=== PATIENT | female | born 1975 | race Caucasian/White ===

== ENCOUNTER 2017-12-25 10:19 | Emergency (ER) | payer SELFPAY ==
[2017-12-25] MEDS ORDERED: HALOPERIDOL LACTATE INJ 5 MG/1 ML VIAL IM ONE (10:42)
[2017-12-25] MEDS ORDERED: IBUPROFEN 600 MG TABLET PO ONE (10:42)
--- NOTE | 2017-12-25 10:45 | ER Document Report ---
ED General <MASON FOY - Last Filed: 12/25/17 13:33> <YAJAIRA SMITH - Last Filed: 12/25/17 15:00> - General Chief Complaint: Headache Stated Complaint: HEADACHE Time Seen by Provider: 12/25/17 10:32 Notes: The patient is a 42-year-old female, past medical history anxiety, headaches, asthma, presents by EMS after she had her usual right posterior headache that started while she was at [facility]. She took 650 mg Motrin with some relief of her symptoms. Patient is very tangential and possibly delusional. "My great grandfather, who is Jalen Gonzalez, told me I am not allowed to have surgery. 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 [email or web address] and that is all I eat every day. (YAJAIRA SMITH) - Related Data Allergies/Adverse Reactions: Penicillins Allergy (Verified 12/25/17 10:45) Past Medical History - General Information source: Patient - Social History Smoking Status: Unknown if Ever Smoked Family History: Reviewed & Not Pertinent <YAJAIRA SMITH - Last Filed: 12/25/17 15:00> Review of Systems <MASON FOY - Last Filed: 12/25/17 13:33> <YAJAIRA SMITH - Last Filed: 12/25/17 15:00> - Review of Systems Notes: REVIEW OF SYSTEMS: CONSTITUTIONAL: -fevers, -chills EENT: -eye pain, -difficulty swallowing, -nasal congestion CARDIOVASCULAR: -chest pain, -syncope. RESPIRATORY: -cough, -SOB GASTROINTESTINAL: -abdominal pain, -nausea, -vomiting, -diarrhea GENITOURINARY: -dysuria, -hematuria MUSCULOSKELETAL: -back pain, -neck pain SKIN: -rash or skin lesions. HEMATOLOGIC: -easy bruising or bleeding. LYMPHATIC: -swollen, enlarged glands. NEUROLOGICAL: -altered mental status or loss of consciousness, +headache, - neurologic symptoms PSYCHIATRIC: -anxiety, -depression. ALL OTHER SYSTEMS REVIEWED AND NEGATIVE. (YAJAIRA SMITH) Physical Exam <MASON FOY - Last Filed: 12/25/17 13:33> <YAJAIRA SMITH - Last Filed: 12/25/17 15:00> - Vital signs Vitals: Temp Pulse Resp BP Pulse Ox 98.5 F 89 16 103/85 97 12/25/17 11:02 12/25/17 11:02 12/25/17 11:02 12/25/17 11:02 12/25/17 11:02 - Notes Notes: PHYSICAL EXAMINATION: GENERAL: Well-appearing, well-nourished and in no acute distress. HEAD: Atraumatic, normocephalic. EYES: Pupils equal round and reactive to light, extraocular movements intact, sclera anicteric, conjunctiva are normal. ENT: nares patent, oropharynx clear without exudates. Moist mucous membranes. NECK: Normal range of motion, supple without lymphadenopathy LUNGS: Breath sounds clear to auscultation bilaterally and equal. No wheezes rales or rhonchi. HEART: Regular rate and rhythm without murmurs ABDOMEN: Soft, nontender, normoactive bowel sounds. No guarding, no rebound. No masses appreciated. EXTREMITIES: Normal range of motion, no pitting or edema. No cyanosis. NEUROLOGICAL: Cranial nerves grossly intact. Normal speech, normal gait. Normal sensory and motor exams. PSYCH: Delusional thoughts, tangential. Denies SI or HI. SKIN: Warm, Dry, normal turgor, no rashes or lesions noted. (YAJAIRA SMITH) Course - Laboratory Result Diagrams: 12/25/17 11:10 12/25/17 11:11 <MASON FOY - Last Filed: 12/25/17 13:33> - Laboratory Result Diagrams: 12/25/17 11:10 12/25/17 11:11 - Diagnostic Test Radiology reviewed: Image reviewed, Reports reviewed - EKG Interpretation by Vt EKG shows normal: Sinus rhythm, [place], Intervals, QRS Complexes, ST-T Waves Rate: Normal <YAJAIRA SMITH - Last Filed: 12/25/17 15:00> - Re-evaluation Re-evalutation: Patient's headache is benign in nature and similar to prior headaches. CT head was obtained due to her bizarre affect and no prior visits, but this did not show any acute findings. Blood work and urine is also unremarkable. Mental health evaluate patient and recommends outpatient follow-up. There is no criteria for IVC at this time she denies wanting to hurt anyone or herself. Will discharge patient with outpatient psychiatric follow-up. (YAJAIRA SMITH) - Vital Signs Vital signs: Temp Pulse Resp BP Pulse Ox 98.5 F 89 16 103/85 97 12/25/17 11:02 12/25/17 11:02 12/25/17 11:02 12/25/17 11:02 12/25/17 11:02 - Laboratory Laboratory results interpreted by me: 12/25/17 12/25/17 12/25/17 10:55 11:10 11:11 Seg Neuts % (Manual) 80 H Band Neutrophils % 1 L Monocytes % (Manual) 2 L Glucose 142 H Urine Blood SMALL H Ur Leukocyte Esterase TRACE H Salicylates < 1.0 L Acetaminophen < 10 L - Diagnostic Test Radiology results interpreted by me: CT Head: NAD (YAJAIRA SMITH) Discharge <MASON FOY - Last Filed: 12/25/17 13:33> <YAJAIRA SMITH - Last Filed: 12/25/17 15:00> - Discharge Clinical Impression: Schizophrenia Qualifiers: Schizophrenia type: paranoid schizophrenia Qualified Code(s): F20.0 - Paranoid schizophrenia Condition: Stable Disposition: HOME, SELF-CARE Additional Instructions: You are recommended to follow-up with [facility] in 3-5 days for your continued mental health treatment. Schizophrenia Schizophrenia is a chemical disorder that affects how the brain functions. The exact cause is unknown, but it tends to run in families. It is NOT caused by emotional trauma. Schizophrenia causes disordered thinking, including unusual beliefs and inability to "process" happenings around the patient. Patients with schizophrenia benefit greatly from medicine. These medicines are called antipsychotics. Never stop the medicine without the doctor 's approval. Counselling may help the patient deal with his disease. Schizophrenics require a very ordered environment. Stresses and sudden changes may bring out symptoms. Drugs and alcohol abuse may become problems. Contact the counsellor or crisis line if there are thoughts of suicide or of harming others, or if you become aware of unusual thoughts or beliefs AT ANY TIME, IF YOUR SYMPTOMS CHANGE SIGNIFICANTLY OR WORSEN OR YOU DEVELOP NEW SYMPTOMS, RETURN TO THE EMERGENCY DEPARTMENT IMMEDIATELY FOR RE-EVALUATION. Referrals: [facility] [Provider Group] - Follow up in 3-5 days
--- NOTE | 2017-12-25 11:10 | RADIOLOGY REPORT (SQ) ---
EXAM DESCRIPTION: CT HEAD WITHOUT COMPLETED DATE/TIME: 12/25/2017 11:02 am REASON FOR STUDY: headache, delusional COMPARISON: None. TECHNIQUE: Axial images acquired through the brain without intravenous contrast. Images reviewed wi th bone, brain and subdural windows. Images stored on PACS. All CT scanners at this facility use dose modulation, iterative reconstruction, and/or weight based d osing when appropriate to reduce radiation dose to as low as reasonably achievable (ALARA). [facility]: Dose Right [facility]: CareDose [facility]: Dose Right [facility]: Teradose 4D [facility]: Humedics RADIATION DOSE: CT Rad equipment meets quality standard of care and radiation dose reduction techniq ues were employed. CTDIvol: 64.6 - 67.0 mGy. DLP: 2479 mGy-cm. mGy. LIMITATIONS: None. FINDINGS: VENTRICLES: Normal size and contour. CEREBRUM: No masses. No hemorrhage. No midline shift. No evidence for acute infarction. Normal gra y/white matter differentiation. No areas of low density in the white matter. CEREBELLUM: No masses. No hemorrhage. No alteration of density. No evidence for acute infarction. EXTRAAXIAL SPACES: No fluid collections. No masses. ORBITS AND GLOBE: No intra- or extraconal masses. Normal contour of globe without masses. CALVARIUM: No fracture. PARANASAL SINUSES: No fluid or mucosal thickening. Chronic appearing deformity of the maxillary sinu ses with soft tissue. SOFT TISSUES: No mass or hematoma. OTHER: No other significant finding. IMPRESSION: NORMAL BRAIN CT WITHOUT CONTRAST. EVIDENCE OF ACUTE STROKE: NO. COMMENT: Quality ID # [id number]: Final reports with documentation of one or more dose reduction techniques (e.g., Automated exposure control, adjustment of the mA and/or kV according to patient size, use of iterative reconstruction technique) TECHNICAL DOCUMENTATION: JOB ID: [id number] [employer]- All Rights Reserved
[2017-12-25 11:33] LABS: HEMATOCRIT 36.9 % (36.0-47.0); HEMOGLOBIN 12.4 g/dL (12.0-15.5); MEAN CORPUSCULAR HEMOGLOBIN 28.2 pg (27.0-33.4); MEAN CORPUSCULAR HGB CONC 33.6 g/dL (32.0-36.0); MEAN CORPUSCULAR VOLUME 84 fl (80-97); PLATELET COUNT 337 10^3/uL (150-450); RED CELL DISTRIBUTION WIDTH 13.6 % (11.5-14.0); WHITE BLOOD COUNT 9.7 10^3/uL (4.0-10.5)
[2017-12-25 11:41] LABS: APPEARANCE,URINE SLIGHTLY-CLOUDY; BILIRUBIN,URINE NEGATIVE (NEGATIVE); COLOR,URINE YELLOW; GLUCOSE, URINE NEGATIVE (NEGATIVE); KETONES,URINE NEGATIVE (NEGATIVE); LEUKOCYTE ESTERASE,URINE TRACE (NEGATIVE); NITRITE,URINE NEGATIVE (NEGATIVE); PROTEIN,URINE NEGATIVE (NEGATIVE); URINE SPECIFIC GRAVITY 1.015; UROBILINOGEN,URINE NEGATIVE mg/dL (<2.0)
[2017-12-25 11:52] LABS: URINE AMPHETAMINES SCREEN NEGATIVE; URINE BARBITURATES SCREEN NEGATIVE; URINE BENZODIAZEPINES SCREEN NEGATIVE; URINE COCAINE SCREEN NEGATIVE; URINE MARIJUANA (THC) SCREEN NEGATIVE; URINE METHADONE SCREEN NEGATIVE; URINE PHENCYCLIDINE SCREEN NEGATIVE
[2017-12-25 11:55] LABS: ALANINE AMINOTRANSFERASE 37 U/L (9-52); ALKALINE PHOSPHATASE 55 U/L (38-126); ANION GAP 9 (5-19); ASPARTATE AMINO TRANSFERASE 30 U/L (14-36); BILIRUBIN,DIRECT 0.4 mg/dL (0.0-0.4); BILIRUBIN,TOTAL 0.5 mg/dL (0.2-1.3); BLOOD UREA NITROGEN 8 mg/dL (7-20); CALCIUM 9.6 mg/dL (8.4-10.2); CARBON DIOXIDE 26 mmol/L (22-30); CHLORIDE 105 mmol/L (98-107); GLUCOSE 142 mg/dL (75-110); POTASSIUM 3.8 mmol/L (3.6-5.0); SODIUM 139.9 mmol/L (137-145)
[2017-12-25 11:55] LABS: ABSOLUTE LYMPHOCYTES# (MANUAL) 1.5 10^3/uL (0.5-4.7); ABSOLUTE MONOCYTES # (MANUAL) 0.2 10^3/uL (0.1-1.4); ABSOLUTE NEUTROPHILS# (MANUAL) 7.9 10^3/uL (1.7-8.2); BAND NEUTROPHILS % (MANUAL) 1 % (3-5); BASOPHILS % (MANUAL) 0 % (0-2); EOSINOPHILS % (MANUAL) 2 % (0-6); LYMPHOCYTES % (MANUAL) 15 % (13-45); MONOCYTES % (MANUAL) 2 % (3-13); SEGMENTED NEUTROPHILS % (MAN) 80 % (42-78); TOTAL CELLS COUNTED 100
[2017-12-25 11:56] LABS: HYPOCHROMASIA SLIGHT; PLATELET CLUMPS PRESENT; PLATELET COMMENT ADEQUATE
[2017-12-25 11:56] LABS: ACETAMINOPHEN < 10 ug/mL (10-30); ALCOHOL < 10 mg/dL (NONE DETECTED); SALICYLATE < 1.0 mg/dL (2.0-20.0)
--- NOTE | 2017-12-25 13:48 | PSYCHOLOGICAL NOTE ---
Psych Note - Psych Note Psych Note: Reason for consult: possible psychosis Consent permissions: Eren Chavarria, father, ; Mukul Monroy, ex- , Pt arrived to ED c/o headache that started at breakfast. Pt states she has had headaches prior. Pt took 650 mg of tylenol prior to arrival with no relief. Pt is awake but talking about the federal government. Pt states she has not had surgeries due to her family being award winners. 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 Pt has emails present that she sent to " [employer]". Pt has multiple bags present with her. Patient disclosed that she arrived to [place] from [place] to see somebody. Patient presented to copies of letters stating that the state department and the country of [facility] received letters she sent to them. 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 She continued to state that she came [facility] because she had a headache. She denies any mental health concerns. 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 He states that she has been in and out of psychiatric hospitals. First time he had noticed something was off was in high school however the patient did go to college graduated with a bachelor's and was with 2 children before she really went "insane." He continued disclosed that the patient was born eating [place] and has changed her name legally multiple times. She has moved around the country from [place] to [place] to [place] etc. Patient ex- still lives in [place] with her 2 children. He disclosed he is concerned because she moves around so much and has been known to [place]. Patient is alert and orientated to person, place, time and circumstance. Mood is euthymic with congruent affect. Patient denies suicidal and homicidal ideations. Mixed delusions are noted; thought process is disorganized and focused on delusions. Eye contact was well-maintained. Conversational speech tangential. Attention and concentration are poor. Insight, judgment, impulse control is fair as evidenced by patient requesting assistance for her medical concern. 295.90 (F20.9) schizophrenia per history provided by patient's family Impression\\plan: Patient is considered psychiatrically clear. Patient does not meet IVC criteria per [place] GS 122C. Patient denies wanting to harm herself or others. Patient does exhibit delusions however these delusions do not cause harm to herself or others. Patient is unwilling to address any mental health concerns. Per patient's father, patient has been traveling around the country alone successfully. Patient was provided resource packet for local area and is encouraged to receive mental health services. Dr. Vanegas was consulted and the care management this patient; attending physician in agreement with augmentations and disposition.
[2017-12-25 15:53] VITALS: BP 124/88
--- NOTE | 2017-12-26 09:16 | EKG REPORT ---
SEVERITY:- BORDERLINE ECG - SINUS RHYTHM BORDERLINE INFERIOR Q WAVES : Confirmed by: Krystyna Villavicencio 26-Dec-2017 09:15:13
== END 2017-12-25 15:53 | disposition home or self-care (01) ==
LOC: ER 10:19
DX: F20.0 Paranoid schizophrenia (principal); R51 Headache; F41.9 Anxiety disorder, unspecified
CPT/HCPCS: 93005; 99285; 96372; 36415; 80307 ×4; 84703; 85025; 80053; 81001; 70450; 93010; J1630